=== PATIENT | male | born 1965 | race Caucasian/White ===

== ENCOUNTER 2018-10-24 12:41 | Emergency (ER) | payer OTHER ==
[~2018-10-24] VITALS: Ht 182.9 cm; Wt 83.0 kg
--- NOTE | 2018-10-24 12:49 | NUR ---
PT [facility]; PT VERBALLY RESPONSIVE, PT TO BED 13, PT ON MONITOR, VSS, NAD NOTED, PENDING ER PROVIDER DEVAUGHNAL
[2018-10-24 12:59] LABS: BASOPHILS # (AUTO) 0.1 /CMM (0.0-0.2); BASOPHILS % (AUTO) 1.9 % (0.0-2.0); EOSINOPHILS % (AUTO) 0.9 % (0.0-6.0); HEMATOCRIT 43 % (39-51); HEMOGLOBIN 15.1 g/dL (13.5-17.5); LYMPHOCYTES % (AUTO) 30.3 % (20.0-44.0); MEAN CORPUSCULAR HGB CONC 35 g/dl (31.0-36.0); MEAN CORPUSCULAR VOLUME 91 fL (80-96); MONOCYTES # (AUTO) 0.4 /CMM (0.1-1.30); MONOCYTES % (AUTO) 5.4 % (2.0-12.0); NEUTROPHILS # (AUTO) 4.1 /CMM (1.8-8.9); NEUTROPHILS % (AUTO) 61.5 % (43.0-81.0); PLATELET COUNT (AUTO) 192 /CMM (150-450); RED BLOOD CELL COUNT(AUTO) 4.76 MIL/uL (4.5-6.0); WHITE BLOOD COUNT (AUTO) 6.7 K/uL (4.3-11.0)
[2018-10-24] MEDS ORDERED: IV NS 0.9% 1,000 ML BAG IV ONE ×2 (13:00→13:30)
[2018-10-24 13:13] LABS: ALANINE AMINOTRANSFERASE 26 U/L (12-78); ALBUMIN 3.9 g/dL (3.4-5.0); ALCOHOL, BLOOD 381 mg/dL (0-0); ALKALINE PHOSPHATASE 67 U/L (46-116); ASPARTATE AMINOTRANSFERASE 28 U/L (15-37); BILIRUBIN,DIRECT 0.1 mg/dL (0.0-0.2); BILIRUBIN,TOTAL 0.7 mg/dL (0.2-1.0); CALCIUM, SERUM 8.8 mg/dL (8.5-10.1); CARBON DIOXIDE 26 mmol/L (21-32); CHLORIDE 104 mmol/L (98-107); CREATININE 0.7 mg/dL (0.6-1.3); GLUCOSE 94 mg/dL (74-106); POTASSIUM 3.7 mmol/L (3.5-5.1); SODIUM SERUM 142 mmol/L (136-145); TOTAL PROTEIN, SERUM 7.6 g/dL (6.4-8.2); UREA NITROGEN, BLOOD 10 mg/dL (7-18)
--- NOTE | 2018-10-24 13:47 | NUR ---
DAUGHTER LISETTE STATES PT OK TO TAKE VALIUM AT [facility], SUPERVISOR LATHING SILVIA WILL ACCEPT PT. SILVIA-
[2018-10-24 15:40] VITALS: BP 133/90
--- NOTE | 2018-10-24 15:40 | NUR ---
Patient discharged to home in stable condition. Written and verbal after care instructions given. Patient verbalizes understanding of instruction. IV removed. Catheter intact and site benign. Pressure and 4x4 applied to site. No bleeding noted. ambulatory with a steady gait
== END 2018-10-24 15:43 | disposition home or self-care (01) ==
LOC: ER 12:49
DX: F10.129 Alcohol abuse with intoxication, unspecified (principal); Z60.2 Problems related to living alone; Y90.9 Presence of alcohol in blood, level not specified
CPT/HCPCS: 36415; 80048; 80076; 80307; 84484; 85025; 99283; J7030 ×2; G0480

== ENCOUNTER 2019-02-06 18:34 | Emergency (ER) | payer OTHER ==
[~2019-02-06] VITALS: Ht 170.2 cm; Wt 77.1 kg
[2019-02-06 18:44] VITALS: BP 134/84
--- NOTE | 2019-02-06 21:02 | NUR ---
PT FRIEND AT BEDSIDE TO DRIVE PATIENT HOME.
== END 2019-02-06 21:05 | disposition home or self-care (01) ==
LOC: ER 18:37
DX: F10.129 Alcohol abuse with intoxication, unspecified (principal); Y90.9 Presence of alcohol in blood, level not specified; Z60.2 Problems related to living alone

== ENCOUNTER 2020-01-11 11:54 | Emergency (ER) | payer OTHER ==
[~2020-01-11] VITALS: Ht 172.7 cm; Wt 69.4 kg
--- NOTE | 2020-01-11 12:10 | NUR ---
[id number], from home, c/o weakness and dizzy x 2-3 weeks. not eating for 1 week, noted jaundice. Patient a/ox3, breathing even and unlabored, no sob noted, needs attended. kept comfortable.
[2020-01-11] MEDS ORDERED: IV NS 0.9% 500 ML BAG IV ONE (12:30)
[2020-01-11 13:25] LABS: BASOPHILS # (AUTO) 0.1 /CMM (0.0-0.2); BASOPHILS % (AUTO) 0.4 % (0.0-2.0); HEMATOCRIT 26 % (39-51); HEMOGLOBIN 8.7 g/dL (13.5-17.5); LYMPHOCYTES # (AUTO) 0.6 /CMM (0.8-4.8); MEAN CORPUSCULAR HGB CONC 34 g/dl (31.0-36.0); MEAN CORPUSCULAR VOLUME 103 fL (80-96); MONOCYTES # (AUTO) 1.3 /CMM (0.1-1.30); MONOCYTES % (AUTO) 8.3 % (2.0-12.0); NEUTROPHILS # (AUTO) 13.4 /CMM (1.8-8.9); NEUTROPHILS % (AUTO) 87.3 % (43.0-81.0); PLATELET COUNT (AUTO) 121 /CMM (150-450); RED BLOOD CELL COUNT(AUTO) 2.52 MIL/uL (4.5-6.0); WHITE BLOOD COUNT (AUTO) 15.3 K/uL (4.3-11.0)
[2020-01-11 13:38] LABS: CALCIUM, SERUM 8.3 mg/dL (8.5-10.1); CARBON DIOXIDE 24 mmol/L (21-32); CHLORIDE 91 mmol/L (98-107); CREATININE 0.9 mg/dL (0.6-1.3); GLUCOSE 127 mg/dL (74-106); POTASSIUM 3.6 mmol/L (3.5-5.1); SODIUM SERUM 134 mmol/L (136-145); UREA NITROGEN, BLOOD 17 mg/dL (7-18)
[2020-01-11 13:39] LABS: SERUM AMMONIA 64 umol/L (11-32)
[2020-01-11 13:41] LABS: ALANINE AMINOTRANSFERASE 26 U/L (12-78); ALBUMIN 2.3 g/dL (3.4-5.0); ALKALINE PHOSPHATASE 109 U/L (46-116); ASPARTATE AMINOTRANSFERASE 182 U/L (15-37); BILIRUBIN,DIRECT 8.5 mg/dL (0.0-0.2); BILIRUBIN,TOTAL 13.1 mg/dL (0.2-1.0); LIPASE 286 U/L (73-393); TOTAL PROTEIN, SERUM 6.4 g/dL (6.4-8.2)
[2020-01-11] MEDS ORDERED: PANTOPRAZOLE 40 MG VIAL ONE (13:42)
--- NOTE | 2020-01-11 13:50 | NUR ---
GAVE URINAL, UNABLE TO GIVE URINE SAMPLE AT THIS TIME.
[2020-01-11] MEDS ORDERED: VANCOMYCIN 1 GM in IV D5W 250 ML IV ONE (14:00)
[2020-01-11] MEDS ORDERED: PANTOPRAZOLE 40 MG VIAL IV ONE (14:00)
[2020-01-11] MEDS ORDERED: MEROPENEM 1,000 MG in IV NS 0.9% 100 ML IV ONE (14:00)
[2020-01-11] MEDS ORDERED: NS 0.9% IV ONE (14:30)
--- NOTE | 2020-01-11 15:47 | NUR ---
Patient is resting comfortably in bed with eyes closed. Easily aroused. VSS
--- NOTE | 2020-01-11 16:00 | NUR ---
FERNANDA MORALEZ CALLED WITH DR ONOFRE ON THE LINE FOR A PEER TO PEER FOR [facility]
[2020-01-11 17:12] LABS: APPEARANCE,URINE Slightly Cloudy (CLEAR); BILIRUBIN,URINE LARGE (NEGATIVE); BLOOD, URINE Negative Ery/uL (NEGATIVE); COLOR,URINE Brown (YELLOW); KETONES,URINE 15 (NEGATIVE); LEUKOCYTE ESTERASE ,URINE Negative (NEGATIVE); NITRITE, URINE Negative (NEGATIVE); PROTEIN,URINE 30 mg/dl (NEGATIVE); UGLUCOSE 100 MG/DL mg/dL (NEGATIVE); UROBILINOGEN,URINE >=8.0 EU/dL (0.2)
--- NOTE | 2020-01-11 17:36 | NUR ---
SPOKE WITH CM, WAS INFORMED THAT [facility] IS WAITING FOR BEDS TO OPEN UP
[2020-01-11 17:50] LABS: BACTERIA,URINE Few /HPF (None Seen); RBC,URINE 0-2 /HPF (0-2); SQUAMOUS EPITHELIAL CELL,UR Few /HPF (None Seen); WBC,URINE 0-2 /HPF (0-3)
--- NOTE | 2020-01-11 19:03 | NUR ---
ACCEPTED AT [facility], BED 306B. GIVE REPORT TO CATARINA PH: [phone]
--- NOTE | 2020-01-11 19:06 | NUR ---
CALLED [facility], PER STAFF 306B IS OCCUPIED WITH ANOTHER PATIENT. WILL CALL [employer] MANAGER FOR CLARIFICATION.
--- NOTE | 2020-01-11 19:29 | NUR ---
306-[id number] [phone] ETA [id number]
[2020-01-11 19:34] VITALS: BP 113/81
--- NOTE | 2020-01-11 19:52 | NUR ---
report given to maggi real at [facility]
== END 2020-01-11 20:05 | disposition short-term general hospital (02) ==
LOC: ER 12:01
DX: A41.9 Sepsis, unspecified organism (principal); R65.21 Severe sepsis with septic shock; D64.9 Anemia, unspecified; D69.6 Thrombocytopenia, unspecified; E80.7 Disorder of bilirubin metabolism, unspecified; K72.00 Acute and subacute hepatic failure without coma; R00.0 Tachycardia, unspecified; R14.0 Abdominal distension (gaseous); R42 Dizziness and giddiness; Z60.2 Problems related to living alone
CPT/HCPCS: 36415; 71045; 80048; 80076; 81001; 82140; 82962; 83605 ×2; 83690; 84484; 85025; 85730; 86850; 87040 ×2; 87086; 93005; 96365; 96367; 96375; 99291; C9113; J2185; J3370; J7030 ×3; J7040; 81000-TC; 87081-TC; J7060